=== PATIENT | male | born 1980 | race Caucasian/White ===

== ENCOUNTER 2023-07-28 10:02 | Outpatient (CLI) | payer OTHER | END 2023-07-28 10:03 | disposition home or self-care (01) | LOC: SCSMRI 10:02 | PROVIDERS: ATTEND Neurological Surgery | DX: M51.16 Intervertebral disc disorders with radiculopathy, lumbar region (principal) | CPT/HCPCS: 72148 ==

== ENCOUNTER 2023-09-02 05:59 | Day surgery (SDC) | payer OTHER ==
[2023-08-26 09:54] VITALS: BMI 30.2
[2023-09-02] MEDS ORDERED: PROPOFOL 20 ML ONE (06:40)
[2023-09-02] MEDS ORDERED: fentaNYL PF 100 MCG/2 ML SYRINGE ONE (06:40)
[2023-09-02] MEDS ORDERED: PROPOFOL 0 ML ONE (06:40)
[2023-09-02] MEDS ORDERED: Lidocaine 1% PF 5 ML VIAL ONE (06:40)
[2023-09-02] MEDS ORDERED: Rocuronium Bromide 10 MG/ML (10ML VIAL) ONE (06:40)
[2023-09-02] MEDS ORDERED: Midazolam HCl 2 mg/2 ml Vial ONE (07:09)
[2023-09-02] MEDS ORDERED: Sodium Chloride 0.9% 100 ML ONE ×3 (07:09→11:52)
[2023-09-02] MEDS ORDERED: CEFAZOLIN 2 GM VIAL ONE ×2 (07:09→11:52)
[2023-09-02] MEDS ORDERED: Scopolamine 1 mg/72 hour Patch ONE (07:09)
[2023-09-02] MEDS ORDERED: EPINEPHrine 1 MG/ML VIAL ONE (07:18)
[2023-09-02] MEDS ORDERED: Bupivacaine PF 0.5% 30 ML VIAL ONE (07:18)
[2023-09-02] MEDS ORDERED: Thrombin 5000 UNITS/5 ML VIAL ONE (07:18)
[2023-09-02] MEDS ORDERED: Dexmedetomidine 200 MCG/2 ML VIAL ONE (08:02)
[2023-09-02] MEDS ORDERED: Dexamethasone 20 MG/5 ML VIAL ONE (08:04)
[2023-09-02] MEDS ORDERED: MINERAL OIL/WHITE PETROLATUM 3.5 GM TUBE ONE (08:19)
[2023-09-02] MEDS ORDERED: Ondansetron PF 4 MG/2 ML Vial ONE (09:08)
[2023-09-02] MEDS ORDERED: SUGAMMADEX SODIUM 200 MG/2 ML VIAL ONE (09:11)
[2023-09-02] MEDS ORDERED: fentaNYL 50 mcg/mL 1 mL Vial ONE ×2 (10:06→10:45)
[2023-09-02] MEDS ORDERED: Tamsulosin HCl 0.4 MG CAP ONE (10:08)
== END 2023-09-02 12:39 | disposition home or self-care (01) ==
LOC: SDC 05:59
PROVIDERS: ATTEND Neurological Surgery
PROC: 01NB0ZZ Release Lumbar Nerve, Open Approach (ICD-10-PCS; principal; 2023-09-02)
DX: M51.16 Intervertebral disc disorders with radiculopathy, lumbar region (principal); Z88.8 Allergy status to other drugs, medicaments and biological substances
CPT/HCPCS: C1713; J0171; J1100; J2250; J2405; J2704; J3010; J3490; S0020

== ENCOUNTER 2023-11-05 13:12 | Emergency (ER) | payer OTHER ==
[2023-11-05 14:38] LABS: #Monocytes 0.3 thou/uL (0.11-0.59); #Neutrophils 3.9 thou/uL (1.40-6.50); %Basophils 0.8 % (0.0-1.0); %Eosinophils 0.4 % (0.0-10.0); %Lymphocytes 19.1 % (21.0-51.0); %Monocytes 5.7 % (0.0-10.0); %Neutrophils 73.8 % (42.0-75.0); Hematocrit 45.5 % (42.0-52.0); Hemoglobin 15.1 g/dL (14.0-18.0); Mean Corpuscular HGB CONC 33.2 g/dL (32.0-36.0); Mean Corpuscular Hemoglobin 28.2 pg (27.0-31.0); Mean Platelet Volume 8.9 fL (7.4-10.4); Platelet Count 189 10x3/uL (130-400); RBC Distribution Width 14.2 % (11.5-14.5); Red Blood Cell (RBC) Count 5.35 mill/uL (4.70-6.10); White Blood Cell (WBC) Count 5.3 10x3/uL (4.8-10.8)
[2023-11-05 14:51] LABS: ALT (SGPT) 45 U/L (8-55); AST (SGOT) 24 U/L (5-34); Albumin 4.2 g/dL (3.5-5.0); Alkaline Phosphatase 82 U/L (40-110); Anion Gap 13 mmol/L (10-20); BUN (Urea Nitrogen) 10 mg/dL (8.9-20.6); Bilirubin, Total 0.9 mg/dL (0.2-1.2); Calc. Creatinine Clearance 0 mL/min (70-130); Calcium 9.5 mg/dL (7.8-10.44); Carbon Dioxide 24 mmol/L (22-29); Chloride 102 mmol/L (98-107); Estimated GFR 98; Globulin 2.8 g/dL (2.4-3.5); Glucose 245 mg/dL (70-105); Sodium 135 mmol/L (136-145)
== END 2023-11-05 15:28 | disposition home or self-care (01) ==
LOC: ERS 13:12
DX: I82.412 Acute embolism and thrombosis of left femoral vein (principal); I82.432 Acute embolism and thrombosis of left popliteal vein; F17.220 Nicotine dependence, chewing tobacco, uncomplicated; E16.2 Hypoglycemia, unspecified; Z55.6 Problems related to health literacy
CPT/HCPCS: 36415; 80053; 83605; 85025; 87040

== ENCOUNTER 2024-02-04 13:23 | Outpatient (CLI) | payer OTHER | END 2024-02-04 13:24 | disposition home or self-care (01) | LOC: ULT 13:23 | PROVIDERS: ATTEND Nurse Practitioner Family | DX: I82.402 Acute embolism and thrombosis of unspecified deep veins of left lower extremity (principal) ==